=== PATIENT | male | born 2000 | race Two or more races ===

== ENCOUNTER 2024-09-09 08:30 | Emergency (ER) | payer SELFPAY ==
[2024-09-09 08:55] VITALS: BP 146/99; PULSE 68; RESP 18; TEMP 98.1; BMI 47.5
[2024-09-09] MEDS ORDERED: DOXYCYCLINE HYCLATE 100 MG CAPSULE PO ONE (09:22)
[2024-09-09] MEDS ORDERED: cefTRIAXone SODIUM 1 GM VIAL ONE (09:22)
[2024-09-09] MEDS: DOXYCYCLINE HYCLATE 100 MG CAPSULE PO ONE (09:29)
[2024-09-09 13:00] LABS: HIV INTERPRETATION NEGATIVE (NEGATIVE)
== END 2024-09-09 10:27 | disposition home or self-care (01) ==
LOC: FER 08:30
DX: N34.2 Other urethritis (principal); R30.0 Dysuria; R31.9 Hematuria, unspecified
CPT/HCPCS: 36415; 81003; 81015; 86780; 86803; 87086; 87389; 87491; 87522; 87591; 99284-25